=== PATIENT | female | born 1960 | race Caucasian/White ===

== ENCOUNTER 2018-12-06 06:34 | Inpatient (IN) | payer OTHER ==
[~2018-12-06] VITALS: Ht 157.5 cm; Wt 68.2 kg
[2018-12-06] VITALS (33 sets, daily range): BP systolic 104–156; BP diastolic 56–90; PULSE 94–116; RESP 12–22; Ht 157.5 cm; Wt 68.2 kg
[~2018-12-06 06:34] MED LIST: CLINDAMYCIN 900 MG/D5W (PMX) 50 ML IVPB SCH; CYCL10TA7 ORAL; LACTATED RINGER'S 1,000 ML IV SCH; OXYM5TAB ORAL; PRED5TAB ORAL; TOFA11TA ORAL
[2018-12-06] MEDS ORDERED: POLYMYXIN/BACITRACIN 1L IRRIG ONE ×2 (07:09→07:10)
[2018-12-06] MEDS ORDERED: BUPIVACAINE 0.5%/EPI (SDV) 30 ML INJ ONE (07:10)
[2018-12-06] MEDS ORDERED: GELATIN SIZE 100 SPONGE ONE (07:10)
[2018-12-06] MEDS ORDERED: THROMBIN 5000 UNIT (RECOTHROM) VIAL ONE (07:10)
--- NOTE | 2018-12-06 07:10 | PREAC ---
Date/Time of Note Date/Time of Note DATE: 12/06/18 TIME: 07:09 Anesthesia Eval and Record Evaluation Time Pre-Procedure Interview DATE: 12/06/18 TIME: 07:09 Age 58 Sex female NPO: 8 hrs Preoperative diagnosis L3-4 degenerative spondylolisthesis with severe stenosis and radiculopathy Planned procedure L3-4 anterior interbody fusion, possible transforaminal interbody fusion, posterior decompression and extension of instrumented fusion Past Medical History Past Medical History: Includes Musculoskeletal: Rheumatoid arthritis Surgery & Anesthesia Issues No known issue Meds Anticoagulation: No Beta Marci within 24 hr: No Reason Beta Marci not given: Pt. not on B-Marci Reported Medications Cyclobenzaprine Hcl* (Cyclobenzaprine Hcl*) 10 Mg Tablet, 1 TAB ORAL DAILY 12/06/18 Oxymorphone Hcl (Oxymorphone Hcl) 5 Mg Tablet, 10 MG ORAL BID 12/06/18 Prednisone* (Prednisone*) 5 Mg Tab, 15 MG ORAL DAILY 12/06/18 Tofacitinib Citrate (Xeljanz Xr) 11 Mg Tab.er.24h, 1 TAB ORAL DAILY 12/06/18 Current Medications Lactated Ringer's 1,000 ml @ 0 mls/hr Q0M IV ; Start 12/06/18 at 06:00; Stop 12/06/18 at 19:00 Clindamycin HCl/ Dextrose 50 ml @ 50 mls/hr PREOP IVPB ; Start 12/06/18 at 06:00; Stop 12/06/18 at 18:00 Meds reviewed: Yes Allergies Coded Allergies: Penicillins (Verified Allergy, Mild, 12/03/18) Allergies Reviewed: Yes Labs/Studies Labs Reviewed: Reviewed by anesthesiologist test: Negative Pre-procedure Exam Airway: Adequate mouth opening Mallampati: Mallampati II Teeth: Normal Lung: Normal Heart: Normal ASA Physical Status ASA physical status: 2 Emergency: None Planned Anesthetic General/MAC: ETT Planned Pain Management Parenteral pain med Pre-operative Attestations Prior to commencing anesthesia and surgery, the patient was re-evaluated, there was verification of: *The patient's identity *The results of appropriate recent lab work and preoperative vital signs *The above evaluation not changing prior to induction *Anesthetic plan, risk benefits, alternative and complications discussed with patient/family; questions answered; patient/family understands, accepts and wish es to proceed. JEEVAN GUEVARA MD Dec 06, 2018 07:10
--- NOTE | 2018-12-06 07:17 | HPN ---
Date/Time of Note Date/Time of Note DATE: 12/06/18 TIME: 07:17 Interval H&P Admission Note Pt. seen H&P reviewed: No system changes MICHELE RICO MD Dec 06, 2018 07:17
[2018-12-06] MEDS ORDERED: MEPERIDINE 100 MG INJ ONE (07:31)
[2018-12-06] MEDS ORDERED: ROCURONIUM 50 MG INJ ONE ×2 (07:31→09:47)
[2018-12-06] MEDS ORDERED: LIDOCAINE 2% (SDV) 5 ML INJ ONE (07:31)
[2018-12-06] MEDS ORDERED: PROPOFOL 20 ML ONE (07:31)
[2018-12-06] MEDS ORDERED: SUCCINYLCHOLINE CHLORIDE 100 MG/5 ML SYG IV ONE (07:31)
[2018-12-06] MEDS ORDERED: GLYCOPYRROLATE 0.4 MG INJ ONE ×2 (07:31→09:48)
[2018-12-06] MEDS ORDERED: NEOSTIGMINE 3 MG/3 ML SYRINGE ONE ×2 (07:31→09:48)
[2018-12-06] MEDS ORDERED: CLINDAMYCIN 900 MG/D5W (PMX) 50 ML IVPB ONE (07:36)
[2018-12-06] MEDS ORDERED: HEMOSTATIC MATRIX/ THROMBIN 1 EA SYG ZFS ONE ×2 (09:04→10:24)
[2018-12-06] MEDS ORDERED: FENTAnyl 50 MCG/ML VIAL ONE ×2 (12:20→13:59)
[2018-12-06] MEDS ORDERED: METOCLOPRAMIDE 10 MG INJ ONE (13:36)
[2018-12-06] MEDS ORDERED: ONDANSETRON 4 MG INJ ONE (13:36)
[2018-12-06] MEDS ORDERED: HYDROmorphONE 1 MG/5 ML IV SYRINGE IV PRN ×2 (14:00)
[2018-12-06] MEDS ORDERED: ONDANSETRON 4 MG INJ IV PRN ×2 (14:00→14:30)
[2018-12-06] MEDS ORDERED: METOCLOPRAMIDE 10 MG INJ IV PRN (14:00)
[2018-12-06] MEDS ORDERED: MEPERIDINE 25 MG INJ IV PRN (14:00)
[2018-12-06] MEDS ORDERED: hydrALAzine 20 MG INJ IV PRN (14:00)
[2018-12-06] MEDS ORDERED: DIPHENHYDRAMINE 50 MG INJ IV PRN (14:00)
[2018-12-06] MEDS ORDERED: FENTAnyl 50 MCG/ML VIAL IV PRN ×2 (14:00)
[2018-12-06] MEDS ORDERED: EPHEDrine 25 MG/5 ML SYG IV PRN (14:00)
[2018-12-06] MEDS ORDERED: LABETALOL HCL 20MG INJ IV PRN (14:00)
[2018-12-06] MEDS ORDERED: MIDAZOLAM 1 MG/ML 2 ML INJ IV PRN (14:00)
[2018-12-06] MEDS ORDERED: NALOXONE (0.4 MG/ML) INJ IV PRN (14:30)
[2018-12-06] MEDS ORDERED: ACETAMINOPHEN 325 MG TAB PO PRN (14:30)
[2018-12-06] MEDS ORDERED: AL HYDROX/MG HYDROX/SIMETH 30 ML CUP PO PRN (14:30)
[2018-12-06] MEDS ORDERED: VANCOMYCIN 1 GM (PMX) 250 ML IVPB SCH (14:30)
[2018-12-06] MEDS ORDERED: PROCHLORPERAZINE 10 MG TAB PO PRN (14:30)
[2018-12-06] MEDS ORDERED: HYDROCODONE/APAP (5/325) TAB PO PRN ×2 (14:30)
[2018-12-06] MEDS ORDERED: NACL 0.9% 3 ML SYG IV SCH (14:30)
--- NOTE | 2018-12-06 14:50 | OPR ---
Date/Time of Note Date/Time of Note DATE: 12/06/18 TIME: 14:29 Operative Report Free Text/Dictation DATE OF SURGERY: 12/06/2018 PREOPERATIVE DIAGNOSES: 1. L3-4 grade 1 degenerative spondylolisthesis with spinal stenosis and right greater than left sided L3 and L4 radiculopathy above prior L4-S1 posterior spinal decompression and instrumented fusion 2. L3-4 Right paracentral disc herniation w/ proximal extension w/ L3 radiculopathy 3. Prior history of L4-S1 decompression w/ posterior spinal instrumented fusion POSTOPERATIVE DIAGNOSES: 1. L3-4 grade 1 degenerative spondylolisthesis with spinal stenosis and right greater than left sided L3 and L4 radiculopathy above prior L4-S1 posterior spinal decompression and instrumented fusion 2. L3-4 Right paracentral disc herniation w/ proximal extension w/ L3 radicul opathy 3. Prior history of L4-S1 decompression w/ posterior spinal instrumented fusion OPERATION PERFORMED: 1. Transforaminal lumbar interbody fusion (TLIF) L3-4 2. Placement of anterior interbody device (TLIF cage) L3-4 3. Placement of posterior spinal segmental instrumentation L3-4 (extension of instrumented fusion to L3) 4. Posterior spinal fusion L3-4 5.Bilateral L4-5 laminectomy, medial facetectomy, foraminotomy and diskectomy 6. Interpretation of neuromonitoring SURGEON: Michele Rico MD Radiology Special Procedure Tech: ESTELLE Whatley ANESTHESIA: General endotracheal ESTIMATED BLOOD LOSS: 300 cc SURGICAL INDICATION: The patient is a 58 year-old female who presents with an increasing history of back and right greater than left sided leg pain. The patient was found to have an unstable spondylolisthesis at L3-4 with associated stenosis and a large right paracentral extruded disk fragment at L3-4 causing subarticular stenosis and radiculopathy. The patient had failed conservative treatments. Risks, benefits and alternatives to posterior decompression with extension of her spinal fusion with instrumentation and TLIF were explained to the patient including but not exclusive of bleeding, infection, visceral injury, nerve injury, nonunion, instrumentation failure, lack of symptom relief, myocardial infarction, stroke, and pulmonary embolism, adjacent segment disease and they wished to proceed. DESCRIPTION OF TECHNIQUE: The patient was identified in the preoperative area and taken to the operating room. Rapid induction of general endotracheal anesthesia was performed. Patient was given 900 mg of IV clindamycin for prophylaxis. Patient was placed in the prone position, with all bony prominences were well-padded, on a Alberto table . Patient's lower back was prepped and draped in sterile fashion. A time-out was held in which patient identifying information including name, date of and medical record number were all verified. We began our procedure by marking L3- 4 disc space levels using a spinal needle and fluoroscopic guidance. An incision was then made accordingly midline. A self retraining retractor was then placed at the L3-4 level after dissecting down the bilateral L3 spinous process and lamina and over the facet capsule. Intraoperative fluoroscopy confirmed the level. A rongeur was used to remove the L3 spinous process and the interspinous ligaments. We identified the interlaminar window. The microscope was brought into use for microdissection. The high-speed bur was used to thin the L3 lamina. Kerrison rongeurs were then used to resect a the lamina, and a portion of the medial facet and the bone overlying the foramen bilaterally. Ligamentum flavum was also resected using the Kerrison rongeurs. Care was taken to protect the thecal sac throughout the decompressive procedure. There was abundant adherent scar tissue at this level from the prior decompression procedure. The decompression took an additional 45 minutes given the adherent scar that required more meticulous dissection given her pior history of decompression and instrumented fusion. The dura was retracted in a medial direction toward the left. The extruded disk fragment behind the L3 vertebral body was identified. The fragment was removed using a series of nerve hooks and pituitaries. Palpation with a ball-tip probe did not reveal any further stenosis at the end of the procedure at L3-4 in the central, subarticular, or foraminal areas. The bilateral L4 and L3 pedicles were palpated using a radha to ensure a pedicle to pedicle decompression. The exiting L3 nerve root and traversing L4 nerve roots were both directly visualized and noted to be decompressed. The cephalad and caudad extent of the decompression were also confirmed using ball-tip probes and intraoperative fluoroscopy. We then retracted the dura and the traversing L4 nerve root using a nerve retractor to expose the right sided disk space again. We then performed a discectomy at this level using a disc knife, a series of curettes and gonzalo, and a rasp. Meticulous dissection was performed during this part of the procedure. We ensured not to violate the endplates and remove as much disc material as possible. We then placed a series of trials to find the correct size for our cage. A 11 mm x 23 mm cage was chosen and was found to be of appropriate fit. Prior to placement of this cage the disc space was packed with patient allograft from bony resection of his spinous process as well as osteo- cell pro. We then placed the appropriate size cage that was also filled with osteocel pro and allograft into the disc space. We ensured appropriate midline and A-P placement of the cage using AP and lateral x-rays. We then focused on placement of posterior spinal segmental instrumentation from L4-5. Using intraoperative fluoroscopy, the pedicles were identified at the L3 level. Care was taken to alter the fluoroscopic view to have a true AP and lateral at each level. Jamshidi needles were then passed down to the lateral aspect of the pedicles through stab incisions. The Jamshidi needles were malleted into the pedicles. These were also performed under EMG guidance. Care was taken to ensure that the needles did not pass the medial wall of the pedicle on the AP view prior to checking that the needle was past the posterior wall of the vertebral body. The needles were then malleted further into the vertebral bodies themselves. Guidewires were passed through the needles and the needles were removed. Taps were applied over the guidewires. Screws were then placed bilaterally into the vertebral bodies. AP and lateral views confirmed appropriate placement of the instrumentation. Attention was turned toward the posterior spinal fusion from L4-S1. 2 jay jay to jay jay connectors were placed at the L5-S1. Rods were selected of the appropriate length and placed into the screw heads of the L3 pedicle screw and L4-5 jay jay to jay jay connectors. End caps were applied and final tightening was performed using a uxckkh-bvtevpm-esrnod wrench. The exposed the facet joints were decorticated. A small remaining amount of allograft was placed into the facet joints to facilitate the posterior fusion. The wound was irrigated copiously using normal saline. The fascia was then closed using 1 Vicryl in interrupted fashion. Subcutaneous tissue was closed using 2-0 Vicryl in interrupted fashion. A drain (medium Hemovac)was also placed in the wound. Skin was closed using a 3-0 nylon suture in an interrupted horizontal mattress fashion. The wounds were dressed using sterile gauze and Tegaderm. The patient was returned to the supine position. The patient was extubated immediately postoperatively and taken to the recovery room in stable condition. Patient tolerated the procedure well and left the operating room in stable condition. Procedure Date: Dec 06, 2018 Preoperative Diagnosis 1. L3-4 grade 1 degenerative spondylolisthesis with spinal stenosis and right greater than left sided L3 and L4 radiculopathy above prior L4-S1 posterior spinal decompression and instrumented fusion 2. L3-4 Right paracentral disc herniation w/ proximal extension w/ L3 radiculopathy 3. Prior history of L4-S1 decompression w/ posterior spinal instrumented fusion Postoperative Diagnosis 1. L3-4 grade 1 degenerative spondylolisthesis with spinal stenosis and right greater than left sided L3 and L4 radiculopathy above prior L4-S1 posterior spinal decompression and instrumented fusion 2. L3-4 Right paracentral disc herniation w/ proximal extension w/ L3 radiculopathy 3. Prior history of L4-S1 decompression w/ posterior spinal instrumented fusion Operation/Procedure Performed 1. Transforaminal lumbar interbody fusion (TLIF) L3-4 2. Placement of anterior interbody device (TLIF cage) L3-4 3. Placement of posterior spinal segmental instrumentation L3-4 (extension of instrumented fusion to L3) 4. Posterior spinal fusion L3-4 5.Bilateral L4-5 laminectomy, medial facetectomy, foraminotomy and diskectomy 6. Interpretation of neuromonitoring Surgeon see signature line Radiology Special Procedure Tech ESTELLE Whatley Anesthesia Type: general Estimated Blood Loss: other Transfusion none Specimen L3-4 disk Grafts/Implants NuVasive 11 mm TLIF cage Osteocel L3 Pedicle screw 5.5 x 45mm x 2 Complications none Pt Condition Post Procedure: stable Disposition: PACU Procedure Description The patient was identified in the preoperative area and taken to the operating room. Rapid induction of general endotracheal anesthesia was performed. Patient was given 900 mg of IV clindamycin for prophylaxis. Patient was placed in the prone position, with all bony prominences were well-padded, on a Alberto table . Patient's lower back was prepped and draped in sterile fashion. A time-out was held in which patient identifying information including name, date of and medical record number were all verified. We began our procedure by marking L3- 4 disc space levels using a spinal needle and fluoroscopic guidance. An incision was then made accordingly midline. A self retraining retractor was then placed at the L3-4 level after dissecting down the bilateral L3 spinous process and lamina and over the facet capsule. Intraoperative fluoroscopy confirmed the level. A rongeur was used to remove the L3 spinous process and the interspinous ligaments. We identified the interlaminar window. The microscope was brought into use for microdissection. The high-speed bur was used to thin the L3 lamina. Kerrison rongeurs were then used to resect a the lamina, and a portion of the medial facet and the bone overlying the foramen bilaterally. Ligamentum flavum was also resected using the Kerrison rongeurs. Care was taken to protect the thecal sac throughout the decompressive procedure. There was abundant adherent scar tissue at this level from the prior decompression procedure. The decompression took an additional 45 minutes given the adherent scar that required more meticulous dissection given her pior history of decompression and instrumented fusion. The dura was retracted in a medial direction toward the left. The extruded disk fragment behind the L3 vertebral body was identified. The fragment was removed using a series of nerve hooks and pituitaries. Palpation with a ball-tip probe did not reveal any further stenosis at the end of the procedure at L3-4 in the central, subarticular, or foraminal areas. The bilateral L4 and L3 pedicles were palpated using a radha to ensure a pedicle to pedicle decompression. The exiting L3 nerve root and traversing L4 nerve roots were both directly visualized and noted to be decompressed. The cephalad and caudad extent of the decompression were also confirmed using ball-tip probes and intraoperative fluoroscopy. We then retracted the dura and the traversing L4 nerve root using a nerve retractor to expose the right sided disk space again. We then performed a discectomy at this level using a disc knife, a series of curettes and gonzalo, and a rasp. Meticulous dissection was performed during this part of the procedure. We ensured not to violate the endplates and remove as much disc material as possible. We then placed a series of trials to find the correct size for our cage. A 11 mm x 23 mm cage was chosen and was found to be of appropriate fit. Prior to placement of this cage the disc space was packed with patient allograft from bony resection of his spinous process as well as osteo- cell pro. We then placed the appropriate size cage that was also filled with osteocel pro and allograft into the disc space. We ensured appropriate midline and A-P placement of the cage using AP and lateral x-rays. We then focused on placement of posterior spinal segmental instrumentation from L4-5. Using intraoperative fluoroscopy, the pedicles were identified at the L3 level. Care was taken to alter the fluoroscopic view to have a true AP and lateral at each level. Jamshidi needles were then passed down to the lateral aspect of the pedicles through stab incisions. The Jamshidi needles were malleted into the pedicles. These were also performed under EMG guidance. Care was taken to ensure that the needles did not pass the medial wall of the pedicle on the AP view prior to checking that the needle was past the posterior wall of the vertebral body. The needles were then malleted further into the vertebral bodies themselves. Guidewires were passed through the needles and the needles were removed. Taps were applied over the guidewires. Screws were then placed bilaterally into the vertebral bodies. AP and lateral views confirmed appropriate placement of the instrumentation. Attention was turned toward the posterior spinal fusion from L4-S1. 2 jay jay to jay jay connectors were placed at the L5-S1. Rods were selected of the appropriate length and placed into the screw heads of the L3 pedicle screw and L4-5 jay jay to jay jay connectors. End caps were applied and final tightening was performed using a fxrjaq-uhqienj-alvbat wrench. The exposed the facet joints were decorticated. A small remaining amount of allograft was placed into the facet joints to facilitate the posterior fusion. The wound was irrigated copiously using normal saline. The fascia was then closed using 1 Vicryl in interrupted fashion. Subcutaneous tissue was closed using 2-0 Vicryl in interrupted fashion. A drain (medium Hemovac)was also placed in the wound. Skin was closed using a 3-0 nylon suture in an interrupted horizo ntal mattress fashion. The wounds were dressed using sterile gauze and Tegaderm. The patient was returned to the supine position. The patient was extubated immediately postoperatively and taken to the recovery room in stable condition. Patient tolerated the procedure well and left the operating room in stable condition. MICHELE RICO MD Dec 06, 2018 14:46
[2018-12-06] MEDS: HYDROmorphONE 1 MG/5 ML IV SYRINGE IV PRN ×3 (15:15→15:41)
[2018-12-06] MEDS: HYDROmorphONE 0.2 MG/ML PCA IV SCH ×2 (15:44→22:20)
[2018-12-06] MEDS: FENTAnyl 50 MCG/ML VIAL IV PRN ×2 (16:14→16:29)
--- NOTE | 2018-12-06 16:39 | PAC ---
Date/Time of Note Date/Time of Note DATE: 12/06/18 TIME: 16:38 Post-Anesthesia Notes Post-Anesthesia Note Last documented vital signs Vital Signs Date Temp Pulse Resp B/P (MAP) Pulse Ox O2 O2 Flow FiO2 Time Delivery Rate 12/06/18 114 21 114/90 97 15:58 (98) 12/06/18 Nasal 3.0 15:53 Cannula 12/06/18 98.1 15:03 Activity: WNL Respiratory function: WNL Cardiovascular function: WNL Mental status: Baseline Pain reasonably controlled: Yes Hydration appropriate: Yes Nausea/Vomiting absent: Yes Comments BT: 98.5 JEEVAN GUEVARA MD Dec 06, 2018 16:39
[2018-12-06] MEDS: SOD CHLORIDE 0.45% 1,000 ML IV SCH (17:05)
[2018-12-06] MEDS: VANCOMYCIN 1 GM (PMX) 250 ML IVPB SCH (18:28)
--- NOTE | 2018-12-06 18:37 | CONS ---
DATE OF ADMISSION: 12/06/2018 DATE OF CONSULTATION: 12/06/2018 TYPE OF CONSULTATION: Postoperative medical. Thank you very much for allowing me to evaluate this 58-year-old female who just underwent lumbar juana k surgery. HISTORICAL EVENTS: As you well know, this patient had an antecedent history of lumbar laminectomy wi th posterior spinal instrumented fusion involving L4 to S1 in 2006. Because of continued pain and fo llowing appropriate imaging studies, the patient elected to proceed with your recommended surgical in tervention undergoing posterior lumbar decompression and extension of instrumental fusion. In recove ry, she is reasonably comfortable without cough, wheezing, shortness of breath, nausea, vomiting, abd ominal or chest pain. Review of the operative record reveals her lowest blood pressure was 95 systol ic. PAST MEDICAL HISTORY: Unrevealing as she has a history of diabetes, hypertension, coronary artery di sease, peptic disease or ulcers. ALLERGIES: INCLUDE PENICILLIN. MEDICATIONS: Include fentanyl patch. PHYSICAL EXAMINATION: GENERAL: Obese female in no acute distress. VITAL SIGNS: BP 110/72, pulse 70, respirations were 18. She was afebrile. HEENT: Eyes: Extraocular muscles were full. Nose, mouth and throat were normal. NECK: Supple. There was no jugular venous distention, thyroid enlargement or adenopathy. LUNGS: Clear. HEART: Rhythm regular. No murmur. No third or fourth sound. ABDOMEN: Nontender. Liver and spleen were not palpable. No mass or tenderness were noted. EXTREMITIES: No edema, no calf tenderness. Preoperative lab studies were unrevealing including chem panel, pro time, PTT, CBC and urinalysis. DIAGNOSTIC DATA: EKG was normal and chest x-ray was unrevealing. IMPRESSION: 1. Stable postop lumbar back surgery. 2. After our discussion with respect to concern regarding her pain, I did request pain management ev aluation. 3. We will evaluate her daily for signs and symptoms of thromboembolic disease. Dictated By: SOL LEON MD MR/NTS Conf#: [id number] DID#: [id number] CC: MICHELE RICO MD;*EndCC*
[2018-12-06] MEDS ORDERED: HYDROmorphONE 0.2 MG/ML PCA IV SCH (22:30)
[2018-12-07 00:21] VITALS: BP 134/69; PULSE 106; RESP 18
[2018-12-07] MEDS: SOD CHLORIDE 0.45% 1,000 ML IV SCH ×4 (00:23→20:23)
[2018-12-07] MEDS: METHOCARBAMOL 750 MG TAB PO PRN ×2 (03:07→19:04)
[2018-12-07] MEDS: HYDROmorphONE 0.2 MG/ML PCA IV SCH ×3 (03:09→20:46)
[2018-12-07 03:59] VITALS: BP 140/66; RESP 18
[2018-12-07] MEDS: ACETAMINOPHEN 1000MG/100ML IV 100 ML IVPB SCH ×3 (05:13→20:19)
[2018-12-07] MEDS: VANCOMYCIN 1 GM (PMX) 250 ML IVPB SCH (06:06)
--- NOTE | 2018-12-07 07:40 | CONS ---
Assessment/Plan Assessment/Plan Assessment/Plan (Daily) Patient status post lumbar sacral spine surgery pain secondary to the above Currently on LIQUID SUGAR MELTER with pain controlled History of rheumatoid arthritis on DMARDs History of rheumatoid arthritis on steroids Otherwise unremarkable past medical history Penicillin allergy I did ask patient have her to bring up her DMARDs to be given during his hospitalization. Suggest restarting corticosteroids since she has been on chronic low-dose 15 mg daily in divided doses. I explained to her that as of tomorrow we will transition her to oral pain control medications which I believe should be her preoperative medication she was taking at home including upon our same dosage and fentanyl. For today I will restart fentanyl patch at 25 mics today and tomorrow increase to 50 mics discontinue LIQUID SUGAR MELTER and start on Opana. Consultation Date/Type/Reason Admit Date/Time Dec 06, 2018 at 06:34 Date/Time of Note DATE: 12/07/18 TIME: 07:39 Hx of Present Illness Chart reviewed patient examined this is postop day 1 on this very pleasant 4-year-old female who underwent lumbar sacral spine surgery. According medical records patient had a lumbar laminectomy with instrumented fusion involving L4- S1 this was back in 2006. Patient states because of the prior surgical procedure she required this current procedure. She denied any warning signs prior to hospitalization however is been having excruciating pain radiating down left leg greater than right leg. It interferes with all her daily physical functioning. Describes pain is 9/10 prior to this hospitalization with current pain control medication LIQUID SUGAR MELTER Dilaudid she is much more comfortable significantly improved. Prior to hospitalization her overall functioning was poor insofar his mood social relationships of physical functioning. Patient denies nausea vomiting constipation itchiness mental cloudiness sweating fatigue drowsiness associated with the current pain control medications as an outpatient she was taking Opana 5 mg 3 times daily generic brand-name unavailable in [place] in fentanyl patch 50 mcg. Patient has a past medical history of rheumatoid arthritis she does take DMARDs and low-dose of prednisone. There is no past medical history of profuse purposeful oversedation patient does not appear to be unkempt or intoxicated or overmedicated she does not requesting increasing dose of her medication she is very well informed of the type of surgery. She is not negotiating for higher dose of pain control medications none alcohol user nondrug user.. Constitutional: no complaints, improved Eyes: no complaints ENT: no complaints Respiratory: no complaints Cardiovascular: no complaints Gastrointestinal: no complaints Genitourinary: no complaints Musculoskeletal: no complaints, other (History of rheumatoid arthritis) Skin: no complaints Neurologic: no complaints Endocrine: no complaints Lymphatic: no complaints Psychological: no complaints, nl mood/affect Immunologic: no complaints Past Medical History Medical History: other ( rheumatoid arthritis) Home Meds Reported Medications Cyclobenzaprine Hcl* (Cyclobenzaprine Hcl*) 10 Mg Tablet, 1 TAB ORAL DAILY 12/06/18 Oxymorphone Hcl (Oxymorphone Hcl) 5 Mg Tablet, 10 MG ORAL BID 12/06/18 Prednisone* (Prednisone*) 5 Mg Tab, 15 MG ORAL DAILY 12/06/18 Tofacitinib Citrate (Xeljanz Xr) 11 Mg Tab.er.24h, 1 TAB ORAL DAILY 12/06/18 Medications Current Medications Sodium Chloride 1,000 ml @ 100 mls/hr Q10H IV Last administered on 12/07/18at 05:12; Admin Dose 100 MLS/HR; Start 12/06/18 at 14:23 Acetaminophen/ Hydrocodone Bitart ([place] (5/325)) 1 tab Q4H PRN PO .PAIN 1-5; Start 12/06/18 at 14:30 Acetaminophen/ Hydrocodone Bitart ([place] (5/325)) 2 tab Q4H PRN PO .PAIN 6-10; Start 12/06/18 at 14:30 Prochlorperazine (Compazine) 10 mg Q4H PRN PO NAUSEA/VOMITING; Start 12/06/18 at 14:30 Ondansetron HCl (Zofran Inj) 4 mg Q6H PRN IV NAUSEA/VOMITING; Start 12/06/18 at 14:30 Al Hydrox/Mg Hydrox/Simethicone (Mag-Al Plus) 15 ml Q4H PRN PO .CONSTIPATION; Start 12/06/18 at 14:30 Docusate Sodium (Colace) 100 mg BID PO ; Start 12/07/18 at 09:00 Acetaminophen (Tylenol Tab) 650 mg Q4H PRN PO TEMP GREATER THAN 101F OR CONDE; Start 12/06/18 at 14:30 IV Flush (NS 3 ml) 3 ml PER PROTOCOL IV ; Start 12/06/18 at 14:30 Naloxone HCl (Narcan) 0.2 mg Q2M PRN IV RR 8 BREATHS/MIN OR LESS; Start 12/06/18 at 14:30 Vancomycin HCl 250 ml @ 125 mls/hr Q12H IVPB Last administered on 12/07/18at 06:06; Admin Dose 125 MLS/HR; Start 12/06/18 at 18:00; Stop 12/07/18 at 07:59 Methocarbamol (Robaxin) 750 mg Q8H PRN PO muscle spasms Last administered on 12/07/18at 03:07; Admin Dose 750 MG; Start 12/07/18 at 01:00 Acetaminophen 100 ml @ 400 mls/hr Q8 IVPB Last administered on 12/07/18at 05:13; Admin Dose 400 MLS/HR; Start 12/07/18 at 06:00; Stop 12/08/18 at 05:59 Hydromorphone HCl (Dilaudid LIQUID SUGAR MELTER) 0.2 MG/HR CONTINUOUS RATE ... Q4PCA IV Last administered on 12/07/18at 03:09; Admin Dose 6 MG; Start 12/07/18 at 02:18 Allergies: Coded Allergies: Penicillins (Verified Allergy, Mild, 12/03/18) Past Surgical History Past Surgical Hx: other (Prior stabilization lumbar sacral spine) Family History Significant Family History: other Social History Smoking Status: Never smoker Exam/Review of Systems Exam Vitals Vital Signs Date Temp Pulse Resp B/P (MAP) Pulse Ox O2 O2 Flow FiO2 Time Delivery Rate 12/07/18 97.9 18 140/66 98 03:59 (90) 12/07/18 106 00:21 12/06/18 Nasal 2.0 19:00 Cannula Intake and Output 12/06/18 12/06/18 12/07/18 1515:00 23:00 07:00 IntakeIntake Total 2100 ml 250 ml 1050 ml OutputOutput Total 700 ml 100 ml 2500 ml BalanceBalance 1400 ml 150 ml -1450 ml Constitutional: alert, oriented, well developed; No non-verbal, No distress, No frail, No obese, No other Psych: no complaints, nl mood/affect; No anxiety, No confusion, No depression, No suicidal, No other Head: normocephalic, atraumatic; No lacerations, No hematomas, No other Respiratory: clear to auscultation, normal air movement; No congested cough, No crackles/rales, No diminished breath sounds, No intercostal retraction, No labored breathing, No respirations, No tactile fremitus, No wheezing, No other Cardiovascular: regular rate and rhythm, nl pulses; No bruits, No diastolic murmur, No edema, No gallop, No irregular rhythm, No jugular venous distention (JVD), No murmurs/extra sounds, No rub, No systolic murmur, No S3, No S4, No other Extremities: normal pulses; No calf tenderness, No cyanosis, No clubbing, No edema, No pitting pedal edema, No palpable cord, No tenderness, No other Neurological: COOK MAYON[place]ISE II-XII intact, nl mental status, nl speech, nl strength; No confused, No DTR's symmetric, No focal weakness, No lethargic, No numbness, No reflexes, No unresponsive, No other Results Result Diagram: 12/07/1844112/07/18441 Results 24hrs Laboratory Tests Test 12/07/18 04:42 Hemoglobin 10.4 L Hematocrit 33.2 L Sodium Level 140 Potassium Level 3.2 L Chloride Level 108 Carbon Dioxide Level 33 H Anion Gap -1 L Blood Urea Nitrogen 8 Creatinine 0.79 Est Glomerular Filtrat Rate mL/min > 60 Glucose Level 111 Calcium Level 8.0 L Medications Medication Current Medications Sodium Chloride 1,000 ml @ 100 mls/hr Q10H IV Last administered on 12/07/18at 05:12; Admin Dose 100 MLS/HR; Start 12/06/18 at 14:23 Acetaminophen/ Hydrocodone Bitart ([place] (5/325)) 1 tab Q4H PRN PO .PAIN 1-5; Start 12/06/18 at 14:30 Acetaminophen/ Hydrocodone Bitart ([place] (5/325)) 2 tab Q4H PRN PO .PAIN 6-10; Start 12/06/18 at 14:30 Prochlorperazine (Compazine) 10 mg Q4H PRN PO NAUSEA/VOMITING; Start 12/06/18 at 14:30 Ondansetron HCl (Zofran Inj) 4 mg Q6H PRN IV NAUSEA/VOMITING; Start 12/06/18 at 14:30 Al Hydrox/Mg Hydrox/Simethicone (Mag-Al Plus) 15 ml Q4H PRN PO .CONSTIPATION; Start 12/06/18 at 14:30 Docusate Sodium (Colace) 100 mg BID PO ; Start 12/07/18 at 09:00 Acetaminophen (Tylenol Tab) 650 mg Q4H PRN PO TEMP GREATER THAN 101F OR CONDE; Start 12/06/18 at 14:30 IV Flush (NS 3 ml) 3 ml PER PROTOCOL IV ; Start 12/06/18 at 14:30 Naloxone HCl (Narcan) 0.2 mg Q2M PRN IV RR 8 BREATHS/MIN OR LESS; Start 12/06/18 at 14:30 Vancomycin HCl 250 ml @ 125 mls/hr Q12H IVPB Last administered on 12/07/18at 06:06; Admin Dose 125 MLS/HR; Start 12/06/18 at 18:00; Stop 12/07/18 at 07:59 Methocarbamol (Robaxin) 750 mg Q8H PRN PO muscle spasms Last administered on 12/07/18at 03:07; Admin Dose 750 MG; Start 12/07/18 at 01:00 Acetaminophen 100 ml @ 400 mls/hr Q8 IVPB Last administered on 12/07/18at 05:13; Admin Dose 400 MLS/HR; Start 12/07/18 at 06:00; Stop 12/08/18 at 05:59 Hydromorphone HCl (Dilaudid LIQUID SUGAR MELTER) 0.2 MG/HR CONTINUOUS RATE ... Q4PCA IV Last administered on 12/07/18at 03:09; Admin Dose 6 MG; Start 12/07/18 at 02:18 ARIS ZAMORA Dec 07, 2018 07:40
[2018-12-07 07:52] VITALS: BP 138/75; PULSE 95; RESP 19
--- NOTE | 2018-12-07 08:31 | CONS ---
Assessment/Plan Assessment/Plan Assessment/Plan (Daily) 1. Doing well post op lumbar back surg 2. Pain management eval apprec, Dx RA noted and will resume prednisone 15 mg/d (will confirm dose) 3. Hypokalemia, addressed Consultation Date/Type/Reason Admit Date/Time Dec 06, 2018 at 06:34 Initial Consult Date Date/Time of Note DATE: 12/07/18 TIME: 08:29 Detailed Summary Respiratory: No cough, No shortness of breath Cardiovascular: No chest pain Gastrointestinal: no complaints Genitourinary: other (valente in place) Musculoskeletal: back pain (moderate with less leg radic pain) Exam/Review of Systems Exam Vitals Vital Signs Date Temp Pulse Resp B/P (MAP) Pulse Ox O2 O2 Flow FiO2 Time Delivery Rate 12/07/18 97.1 95 19 138/75 98 07:52 (96) 12/06/18 Nasal 2.0 19:00 Cannula Intake and Output 12/06/18 12/06/18 12/07/18 1515:00 23:00 07:00 IntakeIntake Total 2100 ml 250 ml 1050 ml OutputOutput Total 700 ml 100 ml 2500 ml BalanceBalance 1400 ml 150 ml -1450 ml Neck: No jvd Respiratory: clear to auscultation Cardiovascular: regular rate and rhythm Gastrointestinal: soft Extremities: No edema, No tenderness Results Result Diagram: 12/07/182 12/07/18 0442 Results 24hrs Laboratory Tests Test 12/07/18 04:42 Hemoglobin 10.4 L Hematocrit 33.2 L Sodium Level 140 Potassium Level 3.2 L Chloride Level 108 Carbon Dioxide Level 33 H Anion Gap -1 L Blood Urea Nitrogen 8 Creatinine 0.79 Est Glomerular Filtrat Rate mL/min > 60 Glucose Level 111 Calcium Level 8.0 L Medications Medication Current Medications Sodium Chloride 1,000 ml @ 100 mls/hr Q10H IV Last administered on 12/07/18at 05:12; Admin Dose 100 MLS/HR; Start 12/06/18 at 14:23 Acetaminophen/ Hydrocodone Bitart ([place] (5/325)) 1 tab Q4H PRN PO .PAIN 1-5; Start 12/06/18 at 14:30 Acetaminophen/ Hydrocodone Bitart ([place] (5/325)) 2 tab Q4H PRN PO .PAIN 6-10; Start 12/06/18 at 14:30 Prochlorperazine (Compazine) 10 mg Q4H PRN PO NAUSEA/VOMITING; Start 12/06/18 at 14:30 Ondansetron HCl (Zofran Inj) 4 mg Q6H PRN IV NAUSEA/VOMITING; Start 12/06/18 at 14:30 Al Hydrox/Mg Hydrox/Simethicone (Mag-Al Plus) 15 ml Q4H PRN PO .CONSTIPATION; Start 12/06/18 at 14:30 Docusate Sodium (Colace) 100 mg BID PO ; Start 12/07/18 at 09:00 Acetaminophen (Tylenol Tab) 650 mg Q4H PRN PO TEMP GREATER THAN 101F OR CONDE; Start 12/06/18 at 14:30 IV Flush (NS 3 ml) 3 ml PER PROTOCOL IV ; Start 12/06/18 at 14:30 Naloxone HCl (Narcan) 0.2 mg Q2M PRN IV RR 8 BREATHS/MIN OR LESS; Start 12/06/18 at 14:30 Methocarbamol (Robaxin) 750 mg Q8H PRN PO muscle spasms Last administered on 12/07/18at 03:07; Admin Dose 750 MG; Start 12/07/18 at 01:00 Acetaminophen 100 ml @ 400 mls/hr Q8 IVPB Last administered on 12/07/18at 05:13; Admin Dose 400 MLS/HR; Start 12/07/18 at 06:00; Stop 12/08/18 at 05:59 Hydromorphone HCl (Dilaudid WEB MARKETING SPECIALIST) 0.2 MG/HR CONTINUOUS RATE ... Q4PCA IV Last administered on 12/07/18at 03:09; Admin Dose 6 MG; Start 12/07/18 at 02:18 Fentanyl (Duragesic 25 Mcg/Hr Patch) 1 patch Q3D TRANSDERM ; Start 12/07/18 at 08:00 SOL LEON MD Dec 07, 2018 08:31
[2018-12-07] MEDS: POTASSIUM CHLORIDE (SR) 10 MEQ TAB PO SCH ×2 (09:37→20:18)
[2018-12-07] MEDS: DOCUSATE SODIUM 100 MG CAP PO SCH ×2 (09:37→20:18)
[2018-12-07] MEDS: predniSONE 5 MG TAB PO SCH (10:59)
--- NOTE | 2018-12-07 12:58 | CONS ---
Consultation Date/Type/Reason Admit Date/Time Dec 06, 2018 at 06:34 Initial Consult Date Date/Time of Note DATE: 12/07/18 TIME: 12:55 24 HR Interval Summary Free Text/Dictation S: 58 yo F POD#1 s/ L3-4 TLIF w/ revision L3-S1 PSIF. Patient with pain over- night. Pain management adjusted pain meds this am and pain now controlled. She was OOB w/ PT. O: Vital Signs Date Temp Pulse Resp B/P (MAP) Pulse Ox O2 O2 Flow FiO2 Time Delivery Rate 12/07/18 97.1 95 19 138/75 98 07:52 (96) Gen: AAOx3, NAD Spine: NVI A/P:58 yo F POD#1 s/ L3-4 TLIF w/ revision L3-S1 PSIF 1. OOB w/ PT 2, Appreciate med and pain management recs 3, D/C foleyt and STATOR TESTER marc 4, Continue drain 5. Dispo planning for ? Exam/Review of Systems Exam Vitals Vital Signs Date Temp Pulse Resp B/P (MAP) Pulse Ox O2 O2 Flow FiO2 Time Delivery Rate 12/07/18 97.1 95 19 138/75 98 07:52 (96) 12/06/18 Nasal 2.0 19:00 Cannula Intake and Output 12/06/18 12/06/18 12/07/18 1515:00 23:00 07:00 IntakeIntake Total 2100 ml 250 ml 1050 ml OutputOutput Total 700 ml 100 ml 2500 ml BalanceBalance 1400 ml 150 ml -1450 ml Results Result Diagram: 12/07/18 0442 12/07/18 0442 Results 24hrs Laboratory Tests Test 12/07/18 04:42 12/07/18 08:52 Hemoglobin 10.4 L Hematocrit 33.2 L Sodium Level 140 Potassium Level 3.2 L Chloride Level 108 Carbon Dioxide Level 33 H Anion Gap -1 L Blood Urea Nitrogen 8 Creatinine 0.79 Est Glomerular Filtrat Rate mL/min > 60 Glucose Level 111 Calcium Level 8.0 L Lab Scanned Report REFERENCE LAB Medications Medication Current Medications Sodium Chloride 1,000 ml @ 100 mls/hr Q10H IV Last administered on 12/07/18at 05:12; Admin Dose 100 MLS/HR; Start 12/06/18 at 14:23 Acetaminophen/ Hydrocodone Bitart ([place] (5/325)) 1 tab Q4H PRN PO .PAIN 1-5; Start 12/06/18 at 14:30 Acetaminophen/ Hydrocodone Bitart ([place] (5/325)) 2 tab Q4H PRN PO .PAIN 6-10; Start 12/06/18 at 14:30 Prochlorperazine (Compazine) 10 mg Q4H PRN PO NAUSEA/VOMITING; Start 12/06/18 at 14:30 Ondansetron HCl (Zofran Inj) 4 mg Q6H PRN IV NAUSEA/VOMITING; Start 12/06/18 at 14:30 Al Hydrox/Mg Hydrox/Simethicone (Mag-Al Plus) 15 ml Q4H PRN PO .CONSTIPATION; Start 12/06/18 at 14:30 Docusate Sodium (Colace) 100 mg BID PO Last administered on 12/07/18at 09:37; Admin Dose 100 MG; Start 12/07/18 at 09:00 Acetaminophen (Tylenol Tab) 650 mg Q4H PRN PO TEMP GREATER THAN 101F OR CONDE; Start 12/06/18 at 14:30 IV Flush (NS 3 ml) 3 ml PER PROTOCOL IV ; Start 12/06/18 at 14:30 Naloxone HCl (Narcan) 0.2 mg Q2M PRN IV RR 8 BREATHS/MIN OR LESS; Start 12/06/18 at 14:30 Methocarbamol (Robaxin) 750 mg Q8H PRN PO muscle spasms Last administered on at 03:07; Admin Dose 750 MG; Start 12/07/18 at 01:00 Acetaminophen 100 ml @ 400 mls/hr Q8 IVPB Last administered on 12/07/18at 05:13; Admin Dose 400 MLS/HR; Start 12/07/18 at 06:00; Stop 12/08/18 at 05:59 Hydromorphone HCl (Dilaudid STATOR TESTER) 0.2 MG/HR CONTINUOUS RATE ... Q4PCA IV Last administered on 12/07/18at 09:37; Admin Dose 6 MG; Start 12/07/18 at 02:18 Fentanyl (Duragesic 25 Mcg/Hr Patch) 1 patch Q3D TRANSDERM Last administered on 12/07/18at 09:25; Admin Dose 1 PATCH; Start 12/07/18 at 08:00 Potassium Chloride (Klor-Con 10) 30 meq BID PO Last administered on 12/07/18at 09:37; Admin Dose 30 MEQ; Start 12/07/18 at 09:00; Stop 12/07/18 at 21:01 Prednisone (Prednisone) 15 mg DAILY PO Last administered on 12/07/18at 10:59; Admin Dose 15 MG; Start 12/07/18 at 09:00 MICHELE RICO MD Dec 07, 2018 12:58
[2018-12-07 14:33] VITALS: BP 131/72; PULSE 78; RESP 20
[2018-12-07 20:39] VITALS: BP 145/75; PULSE 90; RESP 18
[2018-12-08 02:18] VITALS: BP 137/74; PULSE 92; RESP 19
[2018-12-08] MEDS: HYDROmorphONE 0.2 MG/ML PCA IV SCH ×4 (03:39→23:05)
[2018-12-08] MEDS: SOD CHLORIDE 0.45% 1,000 ML IV SCH (06:08)
[2018-12-08 07:33] VITALS: BP 160/89; PULSE 99; RESP 15
--- NOTE | 2018-12-08 08:08 | CONS ---
Assessment/Plan Assessment/Plan Assessment/Plan (Daily) 1. Post op lumbar back surgery, doing well, pain is less 2. Tachycardia noted, rev with pt-she has hx of the same (Asx) 3. Hx RA, prednisone resumed yesterday 4. Hopeful dc late today or tomm Consultation Date/Type/Reason Admit Date/Time Dec 06, 2018 at 06:34 Initial Consult Date Date/Time of Note DATE: 12/08/18 TIME: 08:07 Detailed Summary Respiratory: No cough, No shortness of breath Cardiovascular: No chest pain, No orthopenea, No palpitations Gastrointestinal: no complaints Genitourinary: other (valente in place) Musculoskeletal: back pain (is less) Exam/Review of Systems Exam Vitals Vital Signs Date Temp Pulse Resp B/P (MAP) Pulse Ox O2 O2 Flow FiO2 Time Delivery Rate 12/08/18 98.7 99 15 160/89 97 Room Air 07:33 (112) 12/07/18 2.0 20:27 Intake and Output 12/07/18 12/07/18 12/08/18 1515:00 23:00 07:00 IntakeIntake Total 1050 ml 860 ml 370 ml OutputOutput Total 2580 ml 2075 ml 1810 ml BalanceBalance -1530 ml -1215 ml -1440 ml Neck: No jvd Respiratory: clear to auscultation Cardiovascular: regular rate and rhythm Gastrointestinal: soft Extremities: No edema, No tenderness Results Result Diagram: 12/08/18 0435 12/08/18 0435 Results 24hrs Laboratory Tests Test 12/07/18 08:52 12/08/18 04:35 Lab Scanned Report REFERENCE LAB White Blood Count 8.4 Red Blood Count 3.58 L Hemoglobin 10.8 L Hematocrit 34.4 L Mean Corpuscular Volume 96.1 Mean Corpuscular Hemoglobin 30.2 Mean Corpuscular Hemoglobin Concent 31.4 L Red Cell Distribution Width 12.9 Platelet Count 224 Mean Platelet Volume 8.9 Immature Granulocytes % 0.700 H Neutrophils % 77.4 H Lymphocytes % 11.2 L Monocytes % 9.3 Eosinophils % 1.2 Basophils % 0.2 Nucleated Red Blood Cells % 0.0 Immature Granulocytes # 0.060 H Neutrophils # 6.5 Lymphocytes # 0.9 Monocytes # 0.8 Eosinophils # 0.1 Basophils # 0.0 Nucleated Red Blood Cells # 0.0 Sodium Level 143 Potassium Level 3.9 Chloride Level 111 H Carbon Dioxide Level 30 Anion Gap 2 L Blood Urea Nitrogen 8 Creatinine 0.64 Est Glomerular Filtrat Rate mL/min > 60 Glucose Level 126 Calcium Level 8.5 Phosphorus Level 3.4 Magnesium Level 2.2 Medications Medication Current Medications Sodium Chloride 1,000 ml @ 100 mls/hr Q10H IV Last administered on 12/07/18at 05:12; Admin Dose 100 MLS/HR; Start 12/06/18 at 14:23 Acetaminophen/ Hydrocodone Bitart ([place] (5/325)) 1 tab Q4H PRN PO .PAIN 1-5; Start 12/06/18 at 14:30 Acetaminophen/ Hydrocodone Bitart ([place] (5/325)) 2 tab Q4H PRN PO .PAIN 6-10; Start 12/06/18 at 14:30 Prochlorperazine (Compazine) 10 mg Q4H PRN PO NAUSEA/VOMITING; Start 12/06/18 at 14:30 Ondansetron HCl (Zofran Inj) 4 mg Q6H PRN IV NAUSEA/VOMITING; Start 12/06/18 at 14:30 Al Hydrox/Mg Hydrox/Simethicone (Mag-Al Plus) 15 ml Q4H PRN PO .CONSTIPATION; Start 12/06/18 at 14:30 Docusate Sodium (Colace) 100 mg BID PO Last administered on 12/07/18at 20:18; Admin Dose 100 MG; Start 12/07/18 at 09:00 Acetaminophen (Tylenol Tab) 650 mg Q4H PRN PO TEMP GREATER THAN 101F OR CONDE; Start 12/06/18 at 14:30 IV Flush (NS 3 ml) 3 ml PER PROTOCOL IV ; Start 12/06/18 at 14:30 Naloxone HCl (Narcan) 0.2 mg Q2M PRN IV RR 8 BREATHS/MIN OR LESS; Start 12/06/18 at 14:30 Methocarbamol (Robaxin) 750 mg Q8H PRN PO muscle spasms Last administered on 12/07/18at 19:04; Admin Dose 750 MG; Start 12/07/18 at 01:00 Fentanyl (Duragesic 25 Mcg/Hr Patch) 1 patch Q3D TRANSDERM Last administered on 12/07/18at 09:25; Admin Dose 1 PATCH; Start 12/07/18 at 08:00 Prednisone (Prednisone) 15 mg DAILY PO Last administered on 12/07/18at 10:59; Admin Dose 15 MG; Start 12/07/18 at 09:00 Hydromorphone HCl (Dilaudid ASIAN STUDIES PROFESSOR) 0.2 MG/HR CONTINUOUS RATE ... Q4PCA IV Last administered on 12/08/18at 03:39; Admin Dose 6 MG; Start 12/07/18 at 19:30 SOL LEON MD Dec 08, 2018 08:08
[2018-12-08] MEDS: predniSONE 5 MG TAB PO SCH (08:54)
[2018-12-08] MEDS: DOCUSATE SODIUM 100 MG CAP PO SCH ×2 (08:54→20:45)
[2018-12-08] MEDS: METHOCARBAMOL 750 MG TAB PO PRN ×2 (10:37→22:07)
[2018-12-08 14:39] VITALS: BP 138/85; PULSE 120; RESP 16
[2018-12-08 19:55] VITALS: BP 153/80; PULSE 104; RESP 20
[2018-12-09 02:35] VITALS: BP 138/84; PULSE 96; RESP 20
[2018-12-09] MEDS: HYDROmorphONE 0.2 MG/ML PCA IV SCH (06:41)
[2018-12-09 08:03] VITALS: BP 138/90; PULSE 95; RESP 18
--- NOTE | 2018-12-09 08:09 | CONS ---
Assessment/Plan Assessment/Plan Assessment/Plan (Daily) 1. Stable post op lumbar back surg 2. Tachycardia has resolved 3. O2 saw low at night and she "snores", rec sleep apnea eval 4. Constipation->Miralax 5. OK to dc per ortho Consultation Date/Type/Reason Admit Date/Time Dec 06, 2018 at 06:34 Initial Consult Date Date/Time of Note DATE: 12/09/18 TIME: 08:08 Detailed Summary Respiratory: No cough, No shortness of breath Cardiovascular: No chest pain Gastrointestinal: no complaints, other (constipated) Genitourinary: no complaints Musculoskeletal: back pain (is less) Exam/Review of Systems Exam Vitals Vital Signs Date Temp Pulse Resp B/P (MAP) Pulse Ox O2 O2 Flow FiO2 Time Delivery Rate 12/09/18 98.0 95 18 138/90 95 Room Air 08:03 (106) 12/07/18 2.0 20:27 Intake and Output 12/08/18 12/08/18 12/09/18 1515:00 23:00 07:00 IntakeIntake Total 400 ml 620 ml 620 ml OutputOutput Total 70 ml BalanceBalance 400 ml 620 ml 550 ml Neck: No jvd Respiratory: clear to auscultation Cardiovascular: regular rate and rhythm Gastrointestinal: soft Extremities: No edema Results Result Diagram: 12/09/18 0439 12/09/18 0439 Results 24hrs Laboratory Tests Test 12/09/18 04:39 White Blood Count 6.8 Red Blood Count 3.81 L Hemoglobin 11.6 L Hematocrit 36.1 L Mean Corpuscular Volume 94.8 Mean Corpuscular Hemoglobin 30.4 Mean Corpuscular Hemoglobin Concent 32.1 Red Cell Distribution Width 12.8 Platelet Count 243 Mean Platelet Volume 8.7 Immature Granulocytes % 0.400 Neutrophils % 67.1 Lymphocytes % 19.4 Monocytes % 10.3 Eosinophils % 2.1 Basophils % 0.7 Nucleated Red Blood Cells % 0.0 Immature Granulocytes # 0.030 Neutrophils # 4.5 Lymphocytes # 1.3 Monocytes # 0.7 Eosinophils # 0.1 Basophils # 0.1 Nucleated Red Blood Cells # 0.0 Sodium Level 140 Potassium Level 3.7 Chloride Level 106 Carbon Dioxide Level 33 H Anion Gap 1 L Blood Urea Nitrogen 5 L Creatinine 0.55 Est Glomerular Filtrat Rate mL/min > 60 Glucose Level 98 Calcium Level 8.8 Phosphorus Level 4.2 Magnesium Level 2.1 Medications Medication Current Medications Acetaminophen/ Hydrocodone Bitart ([place] (5/325)) 1 tab Q4H PRN PO .PAIN 1-5; Start 12/06/18 at 14:30 Acetaminophen/ Hydrocodone Bitart ([place] (5/325)) 2 tab Q4H PRN PO .PAIN 6-10; Start 12/06/18 at 14:30 Prochlorperazine (Compazine) 10 mg Q4H PRN PO NAUSEA/VOMITING; Start 12/06/18 at 14:30 Ondansetron HCl (Zofran Inj) 4 mg Q6H PRN IV NAUSEA/VOMITING; Start 12/06/18 at 14:30 Al Hydrox/Mg Hydrox/Simethicone (Mag-Al Plus) 15 ml Q4H PRN PO .CONSTIPATION; Start 12/06/18 at 14:30 Docusate Sodium (Colace) 100 mg BID PO Last administered on 12/08/18at 20:45; Admin Dose 100 MG; Start 12/07/18 at 09:00 Acetaminophen (Tylenol Tab) 650 mg Q4H PRN PO TEMP GREATER THAN 101F OR CONDE; Start 12/06/18 at 14:30 IV Flush (NS 3 ml) 3 ml PER PROTOCOL IV ; Start 12/06/18 at 14:30 Naloxone HCl (Narcan) 0.2 mg Q2M PRN IV RR 8 BREATHS/MIN OR LESS; Start 12/06/18 at 14:30 Methocarbamol (Robaxin) 750 mg Q8H PRN PO muscle spasms Last administered on 12/08/18at 22:07; Admin Dose 750 MG; Start 12/07/18 at 01:00 Fentanyl (Duragesic 25 Mcg/Hr Patch) 1 patch Q3D TRANSDERM Last administered on 12/07/18 09:25; Admin Dose 1 PATCH; Start 12/07/18 at 08:00 Prednisone (Prednisone) 15 mg DAILY PO Last administered on 12/08/18 08:54; Admin Dose 15 MG; Start 12/07/18 at 09:00 Hydromorphone HCl (Dilaudid SURVEILLANCE TECHNICIAN) 0.2 MG/HR CONTINUOUS RATE ... Q4PCA IV Last administered on 12/09/18at 06:41; Admin Dose 6 MG; Start 12/07/18 at 19:30 SOL LEON MD Dec 09, 2018 08:09
[2018-12-09] MEDS ORDERED: POLYETHYLENE GLYCOL 17 GM PACKET PO ONE (08:30)
--- NOTE | 2018-12-09 08:51 | CONS ---
Assessment/Plan Assessment/Plan Assessment/Plan (Daily) Patient status post lumbar sacral spine surgery pain secondary to the above Currently on ICE CREAM DISPENSER with pain controlled History of rheumatoid arthritis on DMARDs History of rheumatoid arthritis on steroids Otherwise unremarkable past medical history Penicillin allergy She's a very pleasant female who has done very well postoperatively. However I've asked her to have her to bring up her home pain control medications which has not been done yet. Today I'll discontinue her ICE CREAM DISPENSER increases dose of her fentanyl patch to what she was taking prior to hospitalization and anticipate patient to be discharged today. When she is at home she will be instructed to restart for pain control medications she was taking pre-admission. Consultation Date/Type/Reason Admit Date/Time Dec 06, 2018 at 06:34 Date/Time of Note DATE: 12/09/18 TIME: 08:45 Hx of Present Illness This is a postdated note for hospital visit December 08, 2018. I will not be available on December 09, 2018. Patient states her pain is under very good control she is on logos fentanyl and low dose ICE CREAM DISPENSER and 0.4 g lockout every 30 minutes. I emphasized her for the last two days to have her bring her home in control medications to the hospital to be dispensed per pharmacy protocol. This is not been done yet. Instead of changing her to a different oral pain control medications prior to discharge she should be on her medications which work well for her and were prescribed for her by her primary care physician. I have spoken with patients orthopedic surgeon about my concerns on December 08, 2018. Past Medical History Medical History: other ( rheumatoid arthritis) Home Meds Reported Medications Cyclobenzaprine Hcl* (Cyclobenzaprine Hcl*) 10 Mg Tablet, 1 TAB ORAL DAILY 12/06/18 Oxymorphone Hcl (Oxymorphone Hcl) 5 Mg Tablet, 10 MG ORAL BID 12/06/18 Prednisone* (Prednisone*) 5 Mg Tab, 15 MG ORAL DAILY 12/06/18 Tofacitinib Citrate (Xeljanz Xr) 11 Mg Tab.er.24h, 1 TAB ORAL DAILY 12/06/18 Medications Current Medications Acetaminophen/ Hydrocodone Bitart ([place] (5/325)) 1 tab Q4H PRN PO .PAIN 1-5; Start 12/06/18 at 14:30 Acetaminophen/ Hydrocodone Bitart ([place] (5/325)) 2 tab Q4H PRN PO .PAIN 6-10; Start 12/06/18 at 14:30 Prochlorperazine (Compazine) 10 mg Q4H PRN PO NAUSEA/VOMITING; Start 12/06/18 at 14:30 Ondansetron HCl (Zofran Inj) 4 mg Q6H PRN IV NAUSEA/VOMITING; Start 12/06/18 at 14:30 Al Hydrox/Mg Hydrox/Simethicone (Mag-Al Plus) 15 ml Q4H PRN PO .CONSTIPATION; Start 12/06/18 at 14:30 Docusate Sodium (Colace) 100 mg BID PO Last administered on 12/08/18at 20:45; Admin Dose 100 MG; Start 12/07/18 at 09:00 Acetaminophen (Tylenol Tab) 650 mg Q4H PRN PO TEMP GREATER THAN 101F OR CONDE; Start 12/06/18 at 14:30 IV Flush (NS 3 ml) 3 ml PER PROTOCOL IV ; Start 12/06/18 at 14:30 Naloxone HCl (Narcan) 0.2 mg Q2M PRN IV RR 8 BREATHS/MIN OR LESS; Start 12/06/18 at 14:30 Methocarbamol (Robaxin) 750 mg Q8H PRN PO muscle spasms Last administered on 12/08/18at 22:07; Admin Dose 750 MG; Start 12/07/18 at 01:00 Fentanyl (Duragesic 25 Mcg/Hr Patch) 1 patch Q3D TRANSDERM Last administered on 12/07/18 09:25; Admin Dose 1 PATCH; Start 12/07/18 at 08:00 Prednisone (Prednisone) 15 mg DAILY PO Last administered on 12/08/18at 08:54; Admin Dose 15 MG; Start 12/07/18 at 09:00 Hydromorphone HCl (Dilaudid ICE CREAM DISPENSER) 0.2 MG/HR CONTINUOUS RATE ... Q4PCA IV Last administered on 12/09/18 06:41; Admin Dose 6 MG; Start 12/07/18 at 19:30 Allergies: Coded Allergies: Penicillins (Verified Allergy, Mild, 12/03/18) Past Surgical History Past Surgical Hx: other (Prior stabilization lumbar sacral spine) Social History Smoking Status: Never smoker Exam/Review of Systems Exam Vitals Vital Signs Date Temp Pulse Resp B/P (MAP) Pulse Ox O2 O2 Flow FiO2 Time Delivery Rate 8/8/19 98.0 95 18 138/90 95 Room Air 08:03 (106) 12/07/18 2.0 20:27 Intake and Output 12/08/18 12/08/18 12/09/18 1515:00 23:00 07:00 IntakeIntake Total 400 ml 620 ml 620 ml OutputOutput Total 70 ml BalanceBalance 400 ml 620 ml 550 ml Constitutional: alert, oriented, well developed Psych: anxiety Head: normocephalic, atraumatic; No lacerations, No hematomas, No other Extremities: normal pulses; No calf tenderness, No cyanosis, No clubbing, No edema, No pitting pedal edema, No palpable cord, No tenderness, No other Neurological: PATIENT ATTENDANT II-XII intact, nl mental status, nl speech, nl strength; No confused, No DTR's symmetric, No focal weakness, No lethargic, No numbness, No reflexes, No unresponsive, No other Results Result Diagram: 12/09/18 0439 12/09/18 043 Results 24hrs Laboratory Tests Test 12/09/18 04:39 White Blood Count 6.8 Red Blood Count 3.81 L Hemoglobin 11.6 L Hematocrit 36.1 L Mean Corpuscular Volume 94.8 Mean Corpuscular Hemoglobin 30.4 Mean Corpuscular Hemoglobin Concent 32.1 Red Cell Distribution Width 12.8 Platelet Count 243 Mean Platelet Volume 8.7 Immature Granulocytes % 0.400 Neutrophils % 67.1 Lymphocytes % 19.4 Monocytes % 10.3 Eosinophils % 2.1 Basophils % 0.7 Nucleated Red Blood Cells % 0.0 Immature Granulocytes # 0.030 Neutrophils # 4.5 Lymphocytes # 1.3 Monocytes # 0.7 Eosinophils # 0.1 Basophils # 0.1 Nucleated Red Blood Cells # 0.0 Sodium Level 140 Potassium Level 3.7 Chloride Level 106 Carbon Dioxide Level 33 H Anion Gap 1 L Blood Urea Nitrogen 5 L Creatinine 0.55 Est Glomerular Filtrat Rate mL/min > 60 Glucose Level 98 Calcium Level 8.8 Phosphorus Level 4.2 Magnesium Level 2.1 Medications Medication Current Medications Acetaminophen/ Hydrocodone Bitart ([place] (5/325)) 1 tab Q4H PRN PO .PAIN 1-5; Start 12/06/18 at 14:30 Acetaminophen/ Hydrocodone Bitart ([place] (5/325)) 2 tab Q4H PRN PO .PAIN 6-10; Start 12/06/18 at 14:30 Prochlorperazine (Compazine) 10 mg Q4H PRN PO NAUSEA/VOMITING; Start 12/06/18 at 14:30 Ondansetron HCl (Zofran Inj) 4 mg Q6H PRN IV NAUSEA/VOMITING; Start 12/06/18 at 14:30 Al Hydrox/Mg Hydrox/Simethicone (Mag-Al Plus) 15 ml Q4H PRN PO .CONSTIPATION; Start 12/06/18 at 14:30 Docusate Sodium (Colace) 100 mg BID PO Last administered on 12/08/18 20:45; Admin Dose 100 MG; Start 12/07/18 at 09:00 Acetaminophen (Tylenol Tab) 650 mg Q4H PRN PO TEMP GREATER THAN 101F OR CONDE; Start 12/06/18 at 14:30 IV Flush (NS 3 ml) 3 ml PER PROTOCOL IV ; Start 12/06/18 at 14:30 Naloxone HCl (Narcan) 0.2 mg Q2M PRN IV RR 8 BREATHS/MIN OR LESS; Start 12/06/18 at 14:30 Methocarbamol (Robaxin) 750 mg Q8H PRN PO muscle spasms Last administered on 12/08/18 22:07; Admin Dose 750 MG; Start 12/07/18 at 01:00 Fentanyl (Duragesic 25 Mcg/Hr Patch) 1 patch Q3D TRANSDERM Last administered on 12/07/18 09:25; Admin Dose 1 PATCH; Start 12/07/18 at 08:00 Prednisone (Prednisone) 15 mg DAILY PO Last administered on 12/08/18 08:54; Admin Dose 15 MG; Start 12/07/18 at 09:00 Hydromorphone HCl (Dilaudid ICE CREAM DISPENSER) 0.2 MG/HR CONTINUOUS RATE ... Q4PCA IV Last administered on 12/09/18 06:41; Admin Dose 6 MG; Start 12/07/18 at 19:30 ARIS ZAMORA Dec 09, 2018 08:51
[2018-12-09] MEDS: DOCUSATE SODIUM 100 MG CAP PO SCH (09:11)
[2018-12-09] MEDS: predniSONE 5 MG TAB PO SCH (09:54)
--- NOTE | 2018-12-09 11:19 | PDOCDIS ---
Discharge Instructions CONDITION [id number] Patient Condition: [id number] Good HOME CARE INSTRUCTIONS: [id number] Diet Instructions: [id number] Regular ACTIVITY: [id number] Activity Restrictions: [id number] Slowly Increase Activity Rest between Activity Avoid heavy lifting Do not Drive Do not operate Machinery Do not operate Power Tool Avoid Heavy Housework [id number] Bathing Restrictions: [id number] Shower FOLLOW UP/APPOINTMENTS Follow-up Plan Follow-up w/ Dr. Rico in 2 weeks MICHELE RICO MD Dec 09, 2018 11:19
--- NOTE | 2018-12-22 12:09 | DS ---
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 PROCEDURE PERFORMED: L3-L4 decompression with diskectomy with extension of fusion with use of transf oraminal lumbar interbody device and pedicle screws. HOSPITAL COURSE: The patient had an uncomplicated hospital course. She does have a history of chron ic pain with use of multiple narcotics with dependency. Therefore, pain management was consulted and helped us with pain management postoperatively for this patient. Prior to discharge, her pain was u nder good control with p.o. pain medications. She was cleared by physical therapy. She reported imp rovement in her bilateral lower extremity pain. ACTIVITY AT DISCHARGE: The patient was told to wear a lumbosacral orthosis when out of bed and ambul ating. She was told to avoid activities that require excessive lifting greater than 20 pounds and ex cessive bending and lifting and twisting. She was told to maintain spine precautions. FOLLOWUP APPOINTMENTS AT DISCHARGE: The patient was told to follow up with Dr. Perez in 2 weeks for repeat evaluation. She was instructed to contact our office at an earlier time if she developed any fevers, chills, chest pain, shortness of breath or motor or sensory changes. PAIN ____ CONTROL: The patient was scheduled with an outpatient pain management, on the day of disch arge in order to help with pain management postoperatively. She was told to restart her home meds. WOUND CARE: The patient was told to keep her posterior lumbar wound clean, dry and intact and covere d when showering. She was told to change her dressing if it was saturated. She was told to contact our office for earlier evaluation. If she developed any excessive drainage or issues with her wound. DIET AT DISCHARGE: Regular. Dictated By: MICHELE ONEILL/PETRA Conf#: [id number] DID#: [id number]
== END 2018-12-09 13:15 | disposition home or self-care (01) | DRG 455 ==
LOC: REC 06:34 → MS1 16:56
PROVIDERS: ADMIT Orthopaedic Surgery; ATTEND Orthopaedic Surgery
PROC: 0SG00AJ Fusion of Lumbar Vertebral Joint with Interbody Fusion Device, Posterior Approach, Anterior Column, Open Approach (ICD-10-PCS; 2018-12-06)
PROC: 0SG00J1 Fusion of Lumbar Vertebral Joint with Synthetic Substitute, Posterior Approach, Posterior Column, Open Approach (ICD-10-PCS; principal; 2018-12-06 07:30)
DX: M43.16 Spondylolisthesis, lumbar region (principal); M51.16 Intervertebral disc disorders with radiculopathy, lumbar region; M48.061 Spinal stenosis, lumbar region without neurogenic claudication; M06.9 Rheumatoid arthritis, unspecified; E87.6 Hypokalemia; K59.00 Constipation, unspecified; Z88.0 Allergy status to penicillin
CPT/HCPCS: 72110; 80048; 83735; 84100; 85014; 85018; 85025; 86850; 86900; 86901; 87086; 88305; 97116; 97162; 97530; J0131; J1170; J2175; J2405; J2710; J2765; J3010; J3370; J7512; L0639